=== PATIENT | female | born 1960 | race American Indian/Alaskan Native ===

== ENCOUNTER 2018-03-31 11:08 | Outpatient (CLI) | payer BC ==
--- NOTE | 2018-04-01 09:34 | Mammography Report ---
BILATERAL DIGITAL SCREENING MAMMOGRAM with CAD: 03/31/18 11:08:00 CLINICAL: Routine screening. COMPARISON:11/24/12 FINDINGS: The breasts are heterogeneously dense, which may obscure small masses. A left outer asymmetry with architectural distortion and a left upper asymmetry with architectural distortion require additional imaging.No mass or suspicious calcifications. The right breast is negative. IMPRESSION: Left asymmetries with architectural distortion requiring further workup. BI-RADS CATEGORY: 0 -- Additional Imaging Evaluation Required RECOMMENDATION: Recall for left mediolateral , exaggerated CC and spot magnification CC and MLO views and left breast ultrasound if needed. ACR BI-RADS MAMMOGRAPHIC CODES: 0 = Needs additional imaging evaluation; 1 = Negative; 2 = Benign; 3 = Probably benign; 4 = Suspicious; 5 = Malignant; 6 = Known biopsy-proven malignancy COMMENT: 1. Dense breast tissue, i.e., adenosis, fibrocystic changes, etc., may obscure an underlying neoplasm. 2. Approximately 10% of cancers are not detected with mammography. 3. A negative mammography report should not delay biopsy if a clinically suspicious mass is present. COMMENT: Patient follow-up letters are generated via our [employer] application.
== END 2018-03-31 11:09 | disposition home or self-care (01) ==
LOC: SPVWC 11:08
PROVIDERS: ATTEND Internal Medicine
DX: Z12.31 Encounter for screening mammogram for malignant neoplasm of breast (principal)
CPT/HCPCS: 77067

== ENCOUNTER 2018-03-31 16:07 | Outpatient (CLI) | payer BC ==
--- NOTE | 2018-04-06 15:28 | Vascular Lab Report ---
Right Lower Extremity Venous Duplex Study: Reason for Exam: Pain and swelling of the right lower extremity. Comments on the Right: All veins visualized are freely compressible without evidence of internal echogenicity. Flow is spontaneous and phasic throughout. No evidence of acute or chronic thrombus is seen in any of the vessels visualized. A soft tissue change in the right knee area is consistent with a Nesbitt's cyst. Comments on the Left: A limited duplex study was done of the proximal veins of the left lower extremity. All veins visualized are freely compressible without evidence of internal echogenicity. Flow is spontaneous and phasic throughout. No evidence of acute or chronic thrombus is seen in any of the vessels visualized. Impression: No evidence of acute or chronic deep venous thrombosis in the right lower extremity. A soft tissue change in the right knee area is consistent with a Nesbitt's cyst.
== END 2018-03-31 16:08 | disposition home or self-care (01) ==
LOC: VAS 16:07
PROVIDERS: ATTEND Orthopaedic Surgery
DX: S83.241A Other tear of medial meniscus, current injury, right knee, initial encounter (principal)

== ENCOUNTER 2018-04-16 13:12 | Outpatient (CLI) | payer BC ==
--- NOTE | 2018-04-16 14:00 | Mammography Report ---
LEFT DIGITAL DIAGNOSTIC MAMMOGRAM : 04/16/18 13:12:00 CLINICAL: Recalled for asymmetry. COMPARISON:03/31/18 screening FINDINGS: Additional mammographic views were performed and are negative. IMPRESSION: Negative Mammogram. BI-RADS CATEGORY: 1 -- Negative RECOMMENDATION: Routine mammographic screening in one year. ACR BI-RADS MAMMOGRAPHIC CODES: 0 = Needs additional imaging evaluation; 1 = Negative; 2 = Benign; 3 = Probably benign; 4 = Suspicious; 5 = Malignant; 6 = Known biopsy-proven malignancy COMMENT: 1. Dense breast tissue, i.e., adenosis, fibrocystic changes, etc., may obscure an underlying neoplasm. 2. Approximately 10% of cancers are not detected with mammography. 3. A negative mammography report should not delay biopsy if a clinically suspicious mass is present. COMMENT: Patient follow-up letters are generated via our [employer] application.
== END 2018-04-16 13:13 | disposition home or self-care (01) ==
LOC: SPVWC 13:12
PROVIDERS: ATTEND Internal Medicine
DX: R92.8 Other abnormal and inconclusive findings on diagnostic imaging of breast (principal)

== ENCOUNTER 2019-05-12 14:11 | Outpatient (CLI) | payer BC ==
--- NOTE | 2019-05-12 15:10 | XRay Report ---
RIGHT ANKLE HISTORY: Pain. COMPARISON: None. TECHNIQUE: 3 views of the right ankle obtained. FINDINGS: Bones: No fracture or dislocation. Joint spaces: Maintained. Soft tissues: Mild medial and lateral soft tissue swelling. Additional findings: None. IMPRESSION: 1. Nonspecific soft tissue swelling and otherwise negative. Signer Name: Fawad Rothman MD Signed: 05/12/2019 3:05 PM Workstation Name: [id number]
--- NOTE | 2019-05-12 15:11 | XRay Report ---
RIGHT FOOT HISTORY: Pain. COMPARISON: None. TECHNIQUE: 3 views of the right foot were obtained. FINDINGS: Bones: No fracture or dislocation. Joint spaces: Maintained. Soft tissues: Normal. Additional findings: None. IMPRESSION: 1. Normal. Signer Name: Fawad Rothman MD Signed: 05/12/2019 3:07 PM Workstation Name: [id number]
== END 2019-05-12 14:12 | disposition home or self-care (01) ==
LOC: SPVIMAG 14:11
PROVIDERS: ATTEND Internal Medicine
DX: M25.471 Effusion, right ankle (principal)